=== PATIENT | male | born 1950 | race Caucasian/White ===

== ENCOUNTER 2023-06-28 15:55 | Emergency (ER) | payer MEDICARE, OTHER ==
[~2023-06-28] VITALS: Ht 180.3 cm; Wt 77.6 kg
[2023-06-28 18:26] VITALS: BP 148/89; TEMP 98.2; O2SAT 100
== END 2023-06-28 18:26 | disposition home or self-care (01) ==
LOC: ER 15:55
DX: K13.79 Other lesions of oral mucosa (principal); M54.2 Cervicalgia; Z60.2 Problems related to living alone
CPT/HCPCS: 70490-TC